=== PATIENT | female | born 1990 | race Caucasian/White ===

== ENCOUNTER 2024-04-04 12:54 | Outpatient (CLI) | payer BC, SELFPAY ==
--- NOTE | ~2024-04-04 | XR_ITS ---
XR foot LT min 3V Ordering provider: Jorge Mcintosh, History: . Pain in L toe(s) . Comparison: None. FINDINGS: BONES: Fracture of the proximal phalanx of the left little toe. JOINT SPACES: Normal. No tarsal coalition. SOFT TISSUES: Normal. IMPRESSION: Fracture of the proximal phalanx of the left little toe. Reviewed, dictated and finalized at location A.
== END 2024-04-04 12:55 | disposition home or self-care (01) ==
PROVIDERS: PCP Internal Medicine; Visit Provider Internal Medicine
DX: S92.512A Displaced fracture of proximal phalanx of left lesser toe(s), initial encounter for closed fracture (principal); X58.XXXA Exposure to other specified factors, initial encounter
CPT/HCPCS: 73630

== ENCOUNTER 2024-12-21 15:13 | Outpatient (CLI) | payer BC, SELFPAY ==
[2024-12-21 16:06] LABS: Basophils Absolute Auto 0.1 K/mm3 (0.0-0.1); Basophils Percent Auto 0.6 % (0.2-1.2); Eosinophils Absolute Auto 0.3 K/mm3 (0-0.3); Eosinophils Percent Auto 3.8 % (0-4.4); Hematocrit 39.2 % (37.0-47.0); Hemoglobin 12.5 g/dL (12.0-15.0); Immature Granulocyte Absolute 0.02 K/mm3 (0.00-0.031); Immature Granulocyte Percent A 0.2 % (0-0.5); Lymphocytes Absolute Auto 2.17 K/mm3 (0.9-3.2); Lymphocytes Percent Auto 26.5 % (18.3-44.2); Mean Corpuscular HGB Conc 31.9 g/dl (32-36); Mean Corpuscular Hemoglobin 30.3 pg (26-34); Mean Corpuscular Volume 95.1 fl (80-100); Mean Platelet Volume 9.7 fl (7.4-10.4); Monocytes Absolute Auto 0.7 K/mm3 (0.1-0.6); Neutrophils Percent Auto 60.9 % (45.5-73.1); Platelet Count Result 331 k/mm3 (150-375); Red Blood Count 4.12 M/mm3 (4.2-5.4); Red Cell Distribution Width 12.1 % (11.5-14.5); White Blood Count 8.2 K/mm3 (4.5-10.0)
[2024-12-21 16:20] LABS: Iron 61 ug/dL (37-170)
[2024-12-21 16:25] LABS: Percent Iron Saturation 16 % (20-50)
[2024-12-21 16:37] LABS: Beta HCG Quantitative < 2.39 mIU/ML
[2024-12-25 11:44] LABS: Testosterone Free 2.6 pg/mL (0.1-6.4); Testosterone Total 25 ng/dL (2-45)
== END 2024-12-21 15:14 | disposition home or self-care (01) ==
PROVIDERS: PCP Internal Medicine; Visit Provider Obstetrics & Gynecology
DX: N92.6 Irregular menstruation, unspecified (principal); N92.0 Excessive and frequent menstruation with regular cycle
CPT/HCPCS: 36415; 82670; 82728; 83540; 83550; 84402; 84403; 84443; 84702; 85025